=== PATIENT | male | born 1960 | race Caucasian/White ===

== ENCOUNTER 2017-06-14 00:59 | Observation (INO) ==
[2017-06-14] MEDS ORDERED: Aspirin 81 MG TAB.CHEW PO ONE (01:18)
--- NOTE | 2017-06-14 01:22 | Emergency Department Note ---
Disposition Clinical Impression: Chest pain Qualifiers: Chest pain type: unspecified Qualified Code(s): R07.9 - Chest pain, unspecified Headache Qualifiers: Headache type: unspecified Headache chronicity pattern: acute headache Intractability: not intractable Qualified Code(s): R51 - Headache Disposition: Admitted As Inpatient Condition: Good Time of Disposition: 02:57 General Adult HPI - General Chief complaint: ED Chest Pain Stated complaint: Chest Pain Time Seen by Provider: 06/14/17 01:07 Source: patient, EMS Limitations: no limitations Nursing Notes Reviewed: Yes Vital Signs Reviewed: Yes - History of Present Illness HPI Narrative: Patient is a 56-year-old male that presents to the emergency department with chest pain. This began approximately 2 hours prior to arrival. He states that the chest pain is located in the center of his chest and radiates to his neck and into his right shoulder. States that he has been nauseated, short of breath , diaphoretic. Patient denies ever having anything like this before. Says that he has had panic attacks in the past but this seems different and that is why he wanted to be evaluated today. He states that the pain is a 7 out of 10. Patient states that he had had a previous cardiac catheterization back in the 90s should not have any cardiac findings. Pain Scale: 6 - Related Data Previous Rx's Medication Instructions Recorded Fluconazole [Diflucan] 150 mg PO DAILY #4 tab 12/18/15 Triamcinolone Acet 0.1% OINT 1 appl TP BID PRN #60 tube 12/18/15 [Kenalog] Allergies Allergy/AdvReac Type Severity Reaction Status Date / Time No Known Allergies Allergy Verified 06/14/17 01:00 All systems ED: reviewed and negative except as stated. Constitutional: Reports: other (Diaphoretic) Cardiovascular: Reports: chest pain Respiratory: Reports: dyspnea Gastrointestinal: Reports: nausea Past Medical History - Past Medical History Medical history: Reports: cancer, diabetes, hyperlipidemia, hypertension Surgical history: Reports: orthopedic, other Psychiatric history: Reports: no psych history - Social History Smoking Status: Never smoker Smokeless Tobacco Status: Yes Alcohol use: Reports: rarely Drug use: Reports: none Physical Exam - General Limitations: no limitations General appearance: alert, in no apparent distress - Head Head exam: atraumatic, normocephalic - Eye Eye exam: Present: normal appearance, EOMI - Neck Neck exam: Present: normal inspection, full ROM, trachea midline - Respiratory Respiratory exam: Present: normal lung sounds bilaterally. Absent: respiratory distress, wheezes - Cardiovascular Cardiovascular exam: Present: regular rate, normal rhythm, normal heart sounds, +S1 - Abdominal Exam Abdominal exam: Present: soft, Non-Tender, normal bowel sounds - Neurological Exam Neurological exam: Present: alert, oriented X3 - Psychiatric Psychiatric exam: Present: normal affect, normal mood - Skin Skin exam: Present: warm, dry, intact Course Vital Signs Temperature 98.7 F 06/14/17 01:08 Pulse Rate 81 06/14/17 01:08 Respiratory Rate 18 06/14/17 01:08 Blood Pressure 161/95 06/14/17 01:08 O2 Sat by Pulse Oximetry 97 06/14/17 01:08 Temperature 98.7 F 06/14/17 01:08 Pulse Rate 88 06/14/17 03:01 Respiratory Rate 16 06/14/17 03:01 Blood Pressure 142/92 06/14/17 03:01 O2 Sat by Pulse Oximetry 95 06/14/17 03:01 Oxygen Delivery Oxygen Delivery Room Air Medical Decision Making - MDM Narrative Medical decision making narrative: Due to the patient having chest pain was acute in onset patient will get a CBC, BMP, troponin, chest x-ray and EKG. The patient will need to be admitted to the hospital for further evaluation and management due to the patient having a heart score of 4. The patient has multiple risk factors and his story is consistent with potential cardiac disease. Patient's EKG showed a sinus rhythm with no STEMI noted. Patient's chest x-ray showed no acute process. EKG showed a sinus rhythm. Patient's troponin was negative. Patient did have an elevated glucose of 172 which appears to be chronic for the patient due to the patient having diabetes. The patient will need to be admitted to the hospital for further evaluation and management due to the patient's presenting history the patient has a heart score of 4. I called and spoke with the hospitalist and accepted the patient to their service. The patient will be admitted to the hospital for further evaluation and management. - Lab Data Lab results reviewed: Yes I reviewed the patient's lab results. Result diagrams: 06/14/17 01:11 06/14/17 01:11 Lab Results 06/14/17 06/14/17 06/14/17 Range/Units 01:11 01:11 01:11 WBC 8.7 (4.3-11.1) K/mcL RBC 5.41 (4.19-5.50) M/mcL Hgb 15.0 (12.9-16.9) g/dL Hct 45.7 (37.5-50.1) % MCV 84.5 (83.0-100.0) fL MCH 27.7 L (28.0-33.3) pg MCHC 32.8 (31.6-35.5) g/dL RDW 13.2 (11.5-14.5) % Plt Count 344 (140-400) K/mcL MPV 9.1 L (9.4-12.4) fL Immature Gran % 0.3 (0-4) % Seg Neutrophils % 50.5 % Lymphocytes % 35.2 % Monocytes % 11.1 % Eosinophils % 2.2 % Basophils % 0.7 % Neutrophils # 4.4 (1.6-8.9) K/mcL Lymphocytes # 3.1 (0.6-4.6) K/mcL Monocytes # 1.0 (0.0-1.3) K/mcL Eosinophils # 0.2 (0.0-0.6) K/mcL Basophils # 0.1 (0.0-0.2) K/mcL Sodium 137 (136-145) mEq/L Potassium 3.6 (3.5-5.1) mEq/L Chloride 99 (98-107) mEq/L Carbon Dioxide 29 (23-29) mEq/L BUN 21 H (6-20) mg/dL Creatinine 1.01 (0.70-1.30) mg/dL Est GFR ( Amer) > 60 (> 60) Est GFR (Non-Af Amer) > 60 (> 60) BUN/Creatinine Ratio 21 (6-26) Glucose 172 H (70-105) mg/dL Calculated Osmolality 291 (280-300) Calcium 10.0 (8.6-10.3) mg/dL Troponin I < 0.03 (< 0.04) ng/mL - Radiology Data Radiology results reviewed: Yes I reviewed the patient's radiology results. Chest X-Ray 06/14/17 01:18 IMPRESSION: No acute cardiopulmonary disease. D/ / Zach García MD / Zach García MD Interpreting Provider: Zach García MD - EKG Data EKG #1 EKG attestation: Yes I reviewed and interpreted this EKG. EKG results narrative: EKG showed sinus rhythm at a rate of 70 bpm, MO interval 170, QRS duration of 99 , QTC of 420. There is no STEMI noted on this EKG. This was compared to previous EKG on 03/15/09. This EKG showed a sinus bradycardia at a rate of 54 bpm. Attestation Statement - Attestation Attestation: I examined this patient and my medical decision-making was reviewed with the Resident Physician. I agree with the documented findings, disposition and treatment plan as described except to the extent set forth below. Patient to the emergency department complaining of chest pain. Onset a couple hours prior to arrival. Radiate into the right arm. He woke up from sleep. On examination he is awake and alert. He is in no distress. His lungs are clear and his heart is regular. Plan. Cardiac workup. Workup unremarkable. Patient was significant risk. Heart score 4. Patient is admitted to medicine for further cardiac workup. He is pain-free at the time of admission.
[2017-06-14 01:25] LABS: Basophils # 0.1 K/mcL (0.0-0.2); Basophils % 0.7 %; Eosinophils # 0.2 K/mcL (0.0-0.6); Eosinophils % 2.2 %; Hematocrit 45.7 % (37.5-50.1); Immature Granulocytes % 0.3 % (0-4); Lymphocytes # 3.1 K/mcL (0.6-4.6); Lymphocytes % 35.2 %; Mean Corpuscular HGB Conc 32.8 g/dL (31.6-35.5); Mean Corpuscular Hemoglobin 27.7 pg (28.0-33.3); Mean Corpuscular Volume 84.5 fL (83.0-100.0); Mean Platelet Volume 9.1 fL (9.4-12.4); Monocytes % 11.1 %; Neutrophils # 4.4 K/mcL (1.6-8.9); Platelet Count 344 K/mcL (140-400); Red Blood Count 5.41 M/mcL (4.19-5.50); Red Cell Distribution Width 13.2 % (11.5-14.5); Segmented Neutrophils % 50.5 %
[2017-06-14 01:38] LABS: BUN/Creatinine Ratio 21 (6-26); Blood Urea Nitrogen 21 mg/dL (6-20); Carbon Dioxide 29 mEq/L (23-29); Chloride 99 mEq/L (98-107); Glucose 172 mg/dL (70-105); Osmolality,Calculated 291 (280-300); Potassium 3.6 mEq/L (3.5-5.1); Sodium 137 mEq/L (136-145); eGFR For African Americans > 60 (> 60); eGFR For Non-African Americans > 60 (> 60)
[2017-06-14] MEDS ORDERED: 0.9 % Sodium Chloride 1,000 ML IVC SCH (03:15)
[2017-06-14] MEDS ORDERED: *HR* Dextrose 50 % in Water (Syg) 50 ML SYRINGE IVP PRN (03:17)
[2017-06-14] MEDS ORDERED: D5% in Water 1,000 ML IVC PRN (03:17)
[2017-06-14] MEDS ORDERED: Dextrose Gel 15 GM/37.5 ML TUBE PO PRN ×2 (03:17)
--- NOTE | 2017-06-14 03:22 | Internal Med History&Physical ---
Date of Encounter: 06/14/17 Time of Encounter: 03:19 Assessment and Plan (1) Chest pain Current visit: Yes Status: Acute trend trop tele, pulse ox exercise stress testing and if ok , home Qualifiers: Chest pain type: precordial pain Qualified Code(s): R07.2 - Precordial pain (2) Headache Current visit: Yes Status: Acute monitor for now. could be related to head cold and sinus syndrome which is improving Qualifiers: Headache type: unspecified Headache chronicity pattern: acute headache Intractability: not intractable Qualified Code(s): R51 - Headache (3) HTN (hypertension) Current visit: Yes Status: Acute continue anti-HTN Qualifiers: Hypertension type: essential hypertension Qualified Code(s): I10 - Essential (primary) hypertension (4) HLD (hyperlipidemia) Current visit: Yes Status: Acute restart home med when he returns home Qualifiers: Qualified Code(s): E78.2 - Mixed hyperlipidemia (5) Diabetes mellitus Current visit: Yes Status: Acute ISS for now restart home med when he returns home Qualifiers: Diabetes mellitus complication status: without complication Qualified Code( s): E11.9 - Type 2 diabetes mellitus without complications Internal Medicine - H&P: HPI Chief complaint: Cp History of present illness: Mr. Hernandez is a 56 year old male with hx of HTN, DMII, HLD who is admitted for CP eval. He has been fighting a cold recentl since friday. He started to have a headache at 11 pm which led him to get up to the bathroom when he got sick to the stomach and felt a stabbing pain between the shoulder blades around the back. The pain went around to the front of his chest and he developed cold sweats like a panic attach thing which he has had before in the past. Pain radiated to the neck. Rate 7/10. He took an aspirin with some improvement. He denies smoking He reported exertional activity up a steep hill 1 week ago w/o symptoms. EKG personally reviewed with rate 70s, NSR XR/XR chest 1V portable IMPRESSION: No acute cardiopulmonary disease. Past Med Surg Social Fam HX - Past Medical History Medical history: cancer, diabetes, hyperlipidemia, hypertension Psychiatric history: no psych history - Past Surgical History Surgical History: orthopedic, other - Social History Smoking Status: Never smoker Smokeless Tobacco Status: Yes Alcohol use: rarely Drug use: none Internal Medicine - H&P: Meds Fluconazole [Diflucan] 150 mg PO DAILY #4 tab 12/18/15 [Rx] Triamcinolone Acet 0.1% OINT [Kenalog] 1 appl TP BID PRN #60 tube 12/18/15 [Rx] 3 Allergy/AdvReac Type Severity Reaction Status Date / Time No Known Allergies Allergy Verified 06/14/17 01:00 All Systems PM: A 10-system review of systems was performed and is negative for pertinent findings except as documented above in the HPI. Review of systems: ROS 14 point review of systems reviewed as best as possible given presentation. Pertinent positive or negative as per HPI or otherwise reviewed as negative - Constitutional Vitals: Temp Pulse Resp BP Pulse Ox 98.7 F 88 16 142/92 95 06/14/17 01:08 06/14/17 03:01 06/14/17 03:01 06/14/17 03:01 06/14/17 03:01 Exam: General - AAO x 3 Psych - Appropriate affect/speech. No agitation Eyes - UDAY. Eye lids intact. No scleral icterus Neuro - No gross peripheral or central neuro deficits with intact CN 2-12 exam Heart - Sinus. RRR. S1 and S2 present. No added HS/murmurs appreciated. No elevated JVD appreciated. Lung - Adequate air entry b/l, No crackles/wheezes appreciated GI - Soft, non-tender. No hepatosplenomegaly/ascites. BS+ - No CVA/suprapubic tenderness or palpable bladder distension Skin - Intact. No rash/petechiae/ecchymosis. Warm extremities MSK - Joints with normal ROM. No joint swellings Internal Med - H&P Results - Labs CBC & Chem 7: 06/14/17 01:11 06/14/17 01:11
[2017-06-14] MEDS: Insulin LISPRO 300 UNITS/3 ML VIAL SQ SCH ×2 (08:12→13:42)
[2017-06-14] MEDS ORDERED: Regadenoson 0.4 MG/5 ML SYRINGE IVP ONE (09:41)
--- NOTE | 2017-06-14 09:58 | Electrocardiograph Report ---
[address] [address] Test Date: 2017-06-14 Pat Name: Francisco Javier Hernandez Department: 104 Room: [facility] Gender: M [employer] Architect: CHATO : 1960 Requested By: Kervin Moreno Order Number: [id number] Reading MD: Mame Zhang Measurements Intervals Rex Rate: 70 P: 33 MN: 170 QRS: -17 QRSD: 99 T: 55 QT: 399 QTc: 420 Interpretive Statements SINUS RHYTHM Electronically Signed On 06-14-2017 9:57:09 EST by Mame Zhang
[2017-06-14 13:00] VITALS: BP 116/71
--- NOTE | 2017-06-14 14:31 | Discharge Summary ---
Date of Encounter: 06/14/17 Time of Encounter: 14:25 - Discharge Diagnosis (1) Chest pain Priority: Primary Status: Acute Comments: Mr. Hernandez is a 56 year old male with hx of HTN, DMII, HLD who is admitted for chest pain evaluation.He had been fighting a cold since Friday. He started to have a headache at 11 pm which led him to get up to the bathroom when he got sick to the stomach and felt a stabbing pain between the shoulder blades radiating around to his back. The pain went around to the front of his chest and he developed cold sweats similar to a panic attach which he has had in the past. The pain also radiated into the neck. He took an aspirin with some improvement. He denies smoking. He reported exertional activity up a steep hill 1 week ago w/o symptoms. EKG with rate 70s, NSR Serial troponins were negative Stress test normal findings Qualifiers: Chest pain type: precordial pain Qualified Code(s): R07.2 - Precordial pain (2) HTN (hypertension) Priority: Secondary Status: Chronic Comments: Pressure stable on no home medications Qualifiers: Hypertension type: essential hypertension Qualified Code(s): I10 - Essential (primary) hypertension (3) HLD (hyperlipidemia) Priority: Secondary Status: Chronic Comments: on no home medications f/u with PCP Qualifiers: Qualified Code(s): E78.2 - Mixed hyperlipidemia (4) Diabetes mellitus Priority: Secondary Status: Chronic Comments: On no home medications Nonfasting blood sugar 172 Recommend f/u with PCP Management as per his primary care physician who he is seeing as scheduled in next week or so Qualifiers: Diabetes mellitus complication status: without complication Qualified Code( s): E11.9 - Type 2 diabetes mellitus without complications - Discharge Medications Home Medications: Fluconazole [Diflucan] 150 mg PO DAILY #4 tab 12/18/15 [Rx] Triamcinolone Acet 0.1% OINT [Kenalog] 1 appl TP BID PRN #60 tube 12/18/15 [Rx] Allergies/Adverse Reactions: 3 Allergy/AdvReac Type Severity Reaction Status Date / Time No Known Allergies Allergy Verified 06/14/17 01:00 Procedures/tests Complete & Pending: Procedures Performed prior 72 hours Category Date Time Status NM rony perf SPECT multi [NM] Routine Exams 06/14/17 09:13 Taken SP pharm nuclear stress Routine Y 06/14/17 09:13 Completed Date of admission: 06/14/17 02:57 Primary care physician: Ailin Mooney Discharging clinician: Nalini Becker Anticipated date of discharge: 06/14/17 - Patient Status Disposition: Home, Self-Care Functional capacity at discharge: independent ambulation Overall status at discharge: patient is back to baseline - Discharge Instructions Follow Up With: Tal Hernandez, [Primary Care Provider] - - Diet and Activity Activity: resume usual activities as tolerated Diet: diabetic diet Interval History: Patient resting in bed with no voiced complaints, denies shortness of breath or chest pain. No fever chills sweats dizziness or syncope. No headache at this time. Hospital course: Please see assessment and plan for detailed information - Time Spent with Patient Total time spent providing and/or coordinating discharge services: - Constitutional Vitals: Temp Pulse Resp BP Pulse Ox 98.4 F 69 14 116/71 95 06/14/17 12:53 06/14/17 12:53 06/14/17 12:53 06/14/17 12:53 06/14/17 12:53 General appearance: Present: cooperative, A&O X 3, pleasant, no acute distress, answers questions appropriately - Head Head exam: Present: atraumatic, normocephalic - Eye Eye exam: Present: conjuntiva pink, sclera anicteric - Neck Neck exam general surgery: Present: supple, trachea midline. Absent: lymphadenopathy, tenderness - Respiratory Respiratory exam: Present: CTAB. Absent: accessory muscle use, rales, rhonchi, wheezes - Cardiovascular Cardiovascular exam: Present: RRR, +S1, +S2. Absent: diastolic murmur, gallop, rubs, systolic murmur - GI/Abdominal GI/Abdominal exam: Present: normal bowel sounds, soft, no peritoneal signs. Absent: distended, tenderness - Extremities Exam Extremities exam: Present: warm, radial pulses palpable and symmetrical. Absent : calf tenderness, cyanotic, pedal edema - Neurological Exam Neurological exam: Present: CN II-XII intact, oriented X3, no focal deficits. Absent: pronater drift, facial droop, speech deficit - Skin Skin exam: Present: dry, intact, warm
[2017-06-14] MEDS ORDERED: Insulin LISPRO 300 UNITS/3 ML VIAL SQ SCH (21:00)
== END 2017-06-14 15:25 | disposition home or self-care (01) ==
LOC: 3BNU 00:59 → EMEROO 00:59 → 3BNU 03:25
PROVIDERS: ADMIT Internal Medicine Hematology & Oncology; ATTEND Registered Nurse